=== PATIENT | male | born 1995 | race Caucasian/White ===

== ENCOUNTER 2017-04-07 21:28 | Emergency (ER) | payer OTHER ==
[2017-04-07 21:32] VITALS: RESP 16
--- NOTE | 2017-04-07 22:07 | EDPHY ---
H & P Stated Complaint: head lac Time Seen by Provider: 04/07/17 21:58 HPI/ROS: HPI The patient presents with scalp laceration which occurred about 1 hr prior to presentation. He was drinking alcohol, watching the football game when he jumped backwards and hit his head on the corner of a wall. He did not lose consciousness. He does not have a headache, dizziness, vomiting, vision changes. He generally feels well without any complaints. He has minimal pain from the laceration. REVIEW OF SYSTEMS Constitutional: No fever, no chills. Skin: No rashes. Neurological: No headache. PMHx: Type 1 diabetes Soc Hx: College student, drinks alcohol PHYSICAL General Appearance: Alert, mildly intoxicated Eyes: Pupils equal and round no pallor or injection Head: The right parieto-occipital region has a 2 cm slightly gaping 1-2 to normal scalp laceration, galea is uninvolved ENT, Mouth: Mucous membranes moist Respiratory: Breathing comfortably Neurological: A&O, moves all extremities Skin: Warm and dry, no rashes Psychiatric: Patient is oriented X 3, there is no agitation Source: Patient Exam Limitations: No limitations - Personal History Current Tetanus/Diphtheria Vaccine: Yes Current Tetanus Diphtheria and Acellular Pertussis (TDAP): Yes - Medical/Surgical History Hx Asthma: No Hx Chronic Respiratory Disease: No Hx Diabetes: Yes Hx Cardiac Disease: No Hx Renal Disease: No Hx Cirrhosis: No Hx Alcoholism: No Hx HIV/AIDS: No Hx Splenectomy or Spleen Trauma: No Other PMH: DM1 - Social History Smoking Status: Never smoked Constitutional: Initial Vital Signs Temperature (C) 36.6 C 04/07/17 21:30 Heart Rate 116 H 04/07/17 21:30 Respiratory Rate 16 04/07/17 21:30 Blood Pressure 143/83 H 04/07/17 21:30 O2 Sat (%) 93 04/07/17 21:30 O2 Delivery Mode Room Air Allergies/Adverse Reactions: No Known Allergies Allergy (Unverified 04/07/17 21:32) Medical Decision Making Procedures: LACERATION REPAIR Procedure: Laceration repair. Verbal consent was obtained from the patient. The linear 2 cm laceration on the right parieto-occipital scalp was anesthetized using lidocaine with epinephrine, total of 1 mL. The wound was scrubbed, draped and explored to its base with a gloved finger. There were no deep structures involved. . The wound was repaired with 3 titi. The wound repair was simple. The procedure was performed by myself. Differential Diagnosis: This is a 21-year-old male who presents from home after sustaining scalp laceration about 1 hr prior to presentation. He fell backwards while drinking alcohol and hit his head on the corner of a wall. He did not lose consciousness , does not have a headache, vomiting, vision change, neurologic deficits or behavioral change. He is here with his friends. He has sustained a scalp laceration. I have considered intracranial hemorrhage, however he does not meet criteria for imaging based on nexus criteria. Plan for laceration repair and discharged home. Departure - Departure Disposition: Home, Routine, Self-Care Clinical Impression: Scalp laceration Qualifiers: Encounter type: initial encounter Qualified Code(s): S01.01XA - Laceration without foreign body of scalp, initial encounter Condition: Good Instructions: Laceration (ED), Staple Care (ED) Additional Instructions: Please return to the ER for any redness, swelling or increased pain from the scalp. If you have a headache tomorrow, get plenty of rest and take ibuprofen 400mg every 6 hours, follow up with your primary care physician. The titi should be removed in 10 days. This can be done at our ER or at [facility]. Referrals: [facility],. [Clinic] - As per Instructions Stand Alone Forms: School Excuse
[2017-04-07 22:36] VITALS: BP 122/80; PULSE 81; TEMP 98.2; O2SAT 96
== END 2017-04-07 22:35 | disposition home or self-care (01) ==
PROC: 0HQ0XZZ Repair Scalp Skin, External Approach (ICD-10-PCS; principal; 2017-04-07)
DX: S01.01XA Laceration without foreign body of scalp, initial encounter (principal); E10.9 Type 1 diabetes mellitus without complications; W22.01XA Walked into wall, initial encounter; Y93.39 Activity, other involving climbing, rappelling and jumping off